=== PATIENT | male | born 2000 | race Caucasian/White ===

== ENCOUNTER → 2021-05-03 01:20 | Outpatient (CLI) | payer BC, SELFPAY ==
[2021-05-04 16:08] LABS: SARS-CoV-2 RNA PCR Negative
== END ==
PROVIDERS: PCP Internal Medicine; Visit Provider Surgery
DX: Z01.812 Encounter for preprocedural laboratory examination (principal); Z20.822 Contact with and (suspected) exposure to COVID-19
CPT/HCPCS: C9803; U0003; U0005

== ENCOUNTER 2021-05-06 00:58 | Day surgery (SDC) | payer BC, SELFPAY ==
[2021-04-22 13:23] VITALS: BMI 27.1
--- NOTE | 2021-05-04 15:26 | PM.SD2 ---
Same Day Admit/Disch: HPI History of Present Illness Chief complaint: Hidradenitis of perineum Narrative: Jonel Nelson is a 20 year old male With a 3 year history of intermittently draining with tenderness and swelling chronic wound in the perineum. It will often swell rupture and then drain. Patient was seen in the office and noted to have a chronic festering wound on the right side of the perineum, fpc between the rectum and scrotum. There was an opening with mucoid drainage reddened and somewhat tender. He is taken to surgery now for excision of likely hidradenitis. [facility] Family History Family History Father Hypertension Mother Hypertension Sibling Hypertension Grandparent Carcinoma of colon Social History Social History Smoking status: Never smoker Tobacco type: cigarettes Alcohol intake: current Drinks per week: 4 Substance use: never Substance use type: does not use Living arrangements: with family Additional living arrangements comments: PARENTS Additional occupation/education comments: [employer] Gender identity (if verbalized by the patient): Male Spiritual care concerns: No Same Day Admit/Disch: Med Pre-admit Medications Home Medications Medication Instructions Recorded Confirmed Type hydrocodone-acetaminophen 1 - 2 tablet PO Q6H PRN #20 tablet 05/06/21 Rx ketorolac 10 mg PO Q6H 4 Days #16 tablet 05/06/21 Rx mineral oil 15 ml PO BID #473 ml 05/06/21 Rx psyllium husk (with sugar) 1 tbsp PO BID #60 packet 05/06/21 Rx [Metamucil (with sugar)] Exam Const: General: comfortable, no acute distress, alert and awake HENMT: Head: normocephalic and atraumatic Mouth: Yes Normal oral and palatal mucosa present Eyes: Conjunctivae: conjunctivae normal Pupils: Equal, round and reactive pupils present EOM: EOMs intact bilaterally Neck: Neck: normal visual inspection, no lymphadenopathy and nontender Resp: Effort & Inspection: normal respiratory effort Auscultation: clear to auscultation bilaterally Cardio: Rate: regular rate Rhythm: regular rhythm Heart sounds: no gallops, no murmurs and no rubs GI: Inspection: non-distended GI Palp: Yes Soft to palpation, No Tenderness to palpation present (GI), No Hepatomegaly present and No Splenomegaly present : Male General Exam: Yes Genital lesions present ( Chronic festering wound on right side of perineum half way between rectum) and Yes tenderness Skin: Lesions: no lesions Rashes: no rashes Neuro: General: no focal motor deficits and CN's II-XI intact bilaterally Cranial nerves: Yes Equal, round and reactive pupils present, Yes Bilaterally intact EOM present, Yes facial symmetry and Yes Midline tongue present Speech: normal speech Motor exam (neuro): 5/5 motor strength present throughout and Motor abnormalities not present Extrem: General: no clubbing, cyanosis or edema and edema Psych: Affect: normal affect Thought process: Normal thought process present Insight: Good insight present (Psych) DS: Summary Time Spent with Patient Time attestation: Total time spent providing and/or coordinating discharge services: DS: Admitting Diagnosis Admitting Diagnosis Admitting Diagnosis: hidradenitis suppuritiva of the perineum - plan to excise under anesthesia as an outpatient. The procedure the risks the benefits have been discussed. All questions were answered. Possibility of recurrence was discussed. He understands and agrees to go ahead. 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 Fistulotomy was performed. Discharge Plan Discharge Patient Disposition: Home, Self-Care Discharge Inst
--- NOTE | 2021-05-05 12:17 | WPDANESEPPF ---
Anes - Initial Pre Proc Eval Procedure: Operation Date: 05/06/21 07:30 Proposed Procedures p Excision Hidradenitis Perineum - Demarco Brown MD Date/Time: 05/05/21 12:17 Surgeon: Demarco Brown MD Pre Op Diagnosis: Hidradenitis of perineum Patient Data Age: 20 Gender: M Height: 1.83 m Weight: 90.7 kg Allergies Allergy/AdvReac Type Severity Reaction Status Date / Time No Known Allergies Allergy Verified 05/06/21 06:32 Home Medications Medication Instructions Recorded Confirmed Type No Home Medications 02/18/21 04/22/21 History Patient hx anesthesia problems: none Family hx anesthesia problems: none PMFSH Family History Family History Father Hypertension Mother Hypertension Sibling Hypertension Grandparent Carcinoma of colon Social History Social History Smoking status: Never smoker Tobacco type: cigarettes Alcohol intake: current Drinks per week: 4 Substance use: never Substance use type: does not use Living arrangements: with family Additional living arrangements comments: PARENTS Additional occupation/education comments: [employer] Gender identity (if verbalized by the patient): Male Spiritual care concerns: No Anes - Eval Final PreProcedure Day of Procedure 05/05/21 12:17 Patient weight: overweight Heart: regular rate and rhythm Lungs: clear to auscultation and normal air movement Airway: Mallampati scale class II Neurological: alert and oriented Last oral intake: >/= 8 hours ASA classification: II Emergent: no Anesthetic plan: proceed Anesthesia type and monitoring: general LMA Informed Consent: The patient's anesthetic plan and its attendant risks and benefits were discussed with the patient/family/POA. Questions were solicited and answers provided to the satisfaction of the patient/family/POA.
[2021-05-06] VITALS (7 sets, daily range): BP systolic 119–160; BP diastolic 66–85; PULSE 67–87; RESP 12–16; TEMP 36–36.1; O2SAT 100
[2021-05-06] MEDS: LACTATED RINGERS 1,000 ML 30 ML IV CONT ×2 (06:32→08:10)
--- NOTE | 2021-05-06 06:48 | WPDHPUPDATE1 ---
History and Physical Update Update Date/Time: 05/06/21 06:48 History and Physical has been reviewed, including an updated exam of the patient. There are NO changes in the patient's condition. Risks, benefits, and alternatives have been discussed and questions answered. Patient agrees to proceed with procedure.
[2021-05-06] MEDS: ceFAZolin 2 GM/D5W 50 ML 2 GM/50 ML BAG IVPB (07:20)
[2021-05-06] MEDS: BUPIVACAINE/EPINEPHRINE 0.5% 10 ML VIAL INFILTRATE (07:50)
--- NOTE | 2021-05-06 08:30 | P.OP_ITS ---
Procedure Note - Detailed Date of Procedure 05/06/21 Pre-op Diagnosis Hidradenitis of perineum Post-op Diagnosis other (Intersphincteric fistula in ANO) Procedure Performed Anal fistulotomy Surgeon Demarco Brown MD Guest Experience Representative Sil MCKEON Anesthesia general and local (0.5% Marcaine with epinephrine) Indications Patient is a 20-year-old man with a chronic draining wound in the right perineum. It is nursing home between the scrotum and the rectum. It is thought to be hidradenitis and patient is taken to surgery now for excision Findings While excising the chronic wound, it was noted there was a tract heading towards the anterior midline of the rectum. Rectal probe for used and this was found to be a fistula in ANO. Anal fistulotomy was performed. The tract was sent to pathology. Description of Procedure Patient was taken to surgery and induced into general anesthesia. He was placed in lithotomy with candy-cane stirrups. The rectal area scrotum and perineum were prepped and draped. I tried initially to probe the swollen area on the right side of the perineum. I could not find an opening. I then tirso an ellipse around the lesion. It was about 2-1/2 cm in length. Local was infiltrated in the area around the lips. I then incised the skin of the ellipse. In dissecting deeper to excise the skin of the hidradenitis, it was noted there was a tract heading posterior towards the rectum. I used initially lacrimal duct probes and found tract heading to the anterior midline of the rectum. Monica anoscope for brought in to the case and placed in the re ctum. With further gentle probing I was able to demonstrate a tract going to the anterior midline and entering the rectum at the dentate line there. I changed this out to a rectal probe. I then checked and it appeared this was an intersphincteric fistula. I went ahead and incised the overlying skin and internal sphincter muscle. I went ahead and excised the skin and part of the tract that had already been dissected. This was sent to pathology. I then cannulated the remaining portion of the tract and unroof to that as well. Most of this tract was excised. Cautery was used for hemostasis. Additional local anesthetic was infiltrated thoroughly throughout the wound. Hemostasis was again achieved. I then loosely approximated the skin edges around the ellipse that had initially been performed to excise the wound. The rest of the wound was left open. Wound was dressed with Xeroform gauze fluffs and promise panties. Patient was returned to a supine position. He was awakened and taken to recovery in good condition. Counts were correct x2. Estimated Blood Loss 10 Drains No Packing No Pathology yes (Fistula in ANO tract) Complications None Condition stable Disposition PACU
== END 2021-05-06 09:37 | disposition home or self-care (01) ==
PROVIDERS: PCP Internal Medicine; Visit Provider Surgery
PROC: (CPT 46275; principal; 2021-05-06 07:30)
DX: K60.3 Anal fistula (principal); L73.2 Hidradenitis suppurativa
CPT/HCPCS: 46275; 88304; A9270; J0690; J1100; J2250; J2405; J2704; J3010; J7120